=== PATIENT | female | born 1955 | race Caucasian/White ===

== ENCOUNTER 2020-08-09 15:40 | Outpatient (CLI) | payer MEDICARE, MEDICAID ==
[2020-08-09 16:35] LABS: Hemoglobin 13.3 g/dL (12.0-15.5); Mean Corpuscular HGB CONC 32.3 g/dL (32.0-36.0); Mean Corpuscular Hemoglobin 29.6 pg (27.0-33.0); Mean Corpuscular Volume 91.8 fl (81.6-98.3); Mean Platelet Volume 11.5 fl (7.4-10.4); Platelet Count 184 10x3/uL (150-450); RBC Distribution Width 13.9 % (11.5-14.5); Red Blood Cell (RBC) Count 4.49 10x6/uL (3.90-5.03)
[2020-08-09 16:43] LABS: Anion Gap 14 mmol/L (10-20); BUN (Urea Nitrogen) 13 mg/dL (9.8-20.1); Calc. Creatinine Clearance 0 mL/min (70-130); Calcium 8.8 mg/dL (7.8-10.44); Carbon Dioxide 26 mmol/L (23-31); Chloride 105 mmol/L (98-107); Glucose 78 mg/dL (80-115); Potassium 3.6 mmol/L (3.5-5.1); Sodium 141 mmol/L (136-145)
[2020-08-10 01:52] LABS: SARS-CoV-2 PCR by NAA Not Detected (NotDetected)
== END 2020-08-09 15:41 | disposition home or self-care (01) ==
LOC: LABBT 15:40
PROVIDERS: ATTEND Thoracic Surgery (Cardiothoracic Vascular Surgery)
DX: Z01.818 Encounter for other preprocedural examination (principal); I70.202 Unspecified atherosclerosis of native arteries of extremities, left leg; Z20.822 Contact with and (suspected) exposure to COVID-19
CPT/HCPCS: 71046; 80048; 85027; 86850; 86900; 86901; U0003; U0005; 87635; 93005; 93010

== ENCOUNTER 2020-08-13 05:59 | Inpatient (IN) | payer MEDICARE, MEDICAID ==
[2020-08-13] MEDS ORDERED: Heparin 5,000 UNITS/ML VIAL ONE (06:33)
[2020-08-13] MEDS ORDERED: Protamine Sulfate 50 MG/5 ML VIAL ONE (06:33)
[2020-08-13] MEDS ORDERED: Dexmedetomidine 200 MCG/2 ML VIAL ONE (06:51)
[2020-08-13] MEDS ORDERED: Fentanyl 250 MCG/5 ML VIAL ONE (06:51)
[2020-08-13] MEDS ORDERED: Norepinephrine 4 MG/4 ML VIAL ONE (07:02)
[2020-08-13] MEDS ORDERED: Midazolam HCl 2 mg/2 ml Vial ONE (07:09)
[2020-08-13] MEDS ORDERED: Heparin 10,000 UNITS/ 10 ML VIAL ONE (07:22)
[2020-08-13] MEDS ORDERED: Ondansetron PF 4 MG/2 ML Vial ONE (07:42)
[2020-08-13] MEDS ORDERED: PHENYLEPHRINE-NS 100 MCG/ML 10 ML SYRINGE ONE (07:42)
[2020-08-13] MEDS ORDERED: Vecuronium 10 MG VIAL ONE (07:42)
[2020-08-13] MEDS ORDERED: Lidocaine 1% PF 5 ML VIAL ONE (07:42)
[2020-08-13] MEDS ORDERED: PROPOFOL 200 MG/20 ML VIAL ONE (07:42)
[2020-08-13] MEDS ORDERED: ePHEDrine Sulfate 50 MG/10 ML VIAL ONE (07:42)
[2020-08-13] MEDS ORDERED: Fentanyl 100 MCG/2 ML VIAL ONE ×2 (15:12→19:16)
[2020-08-13] MEDS ORDERED: hydrALAZINE 20 MG/ML VIAL ONE (15:32)
[2020-08-13 17:16] LABS: #Lymphocytes 0.6 thou/uL (1.20-3.40); #Monocytes 0.2 thou/uL (0.11-0.59); #Neutrophils 8.8 thou/uL (1.40-6.50); %Basophils 0.1 % (0.0-1.0); %Eosinophils 0.2 % (0.0-10.0); %Lymphocytes 6.2 % (21.0-51.0); %Neutrophils 91.5 % (42.0-75.0); Hemoglobin 12.3 g/dL (12.0-16.0); Mean Corpuscular HGB CONC 31.8 g/dL (32.0-36.0); Mean Corpuscular Hemoglobin 29.3 pg (27.0-31.0); Mean Corpuscular Volume 92.1 fL (78.0-98.0); Mean Platelet Volume 9.7 fL (7.4-10.4); Platelet Count 158 thou/uL (130-400); RBC Distribution Width 13.1 % (11.5-14.5); White Blood Cell (WBC) Count 9.6 thou/uL (4.8-10.8)
[2020-08-13] MEDS ORDERED: Non-Formulary Medication 1 EACH PO PRN (20:23)
[2020-08-13] MEDS ORDERED: Morphine 4 MG/ML VIAL SLOW IVP PRN (20:27)
[2020-08-13] MEDS ORDERED: hydrALAZINE 20 MG/ML VIAL SLOW IVP PRN (20:28)
[2020-08-13] MEDS ORDERED: Ondansetron HCl/PF 4 MG/2 ML Vial IVP PRN (20:30)
[2020-08-13] MEDS ORDERED: Promethazine HCl 25 MG/ML VIAL IM/IV PRN (20:30)
[2020-08-13] MEDS ORDERED: Milk Of Magnesia 30 ML UDCUP PO PRN (20:33)
[2020-08-13] MEDS ORDERED: Mag-Al 1200 mg/1200 mg/30 ML UDCUP PO PRN (20:35)
[2020-08-13] MEDS ORDERED: Dronedarone HCl 400 MG TAB PO SCH (21:00)
[2020-08-13] MEDS ORDERED: Mometasone 200 MCG/Formoterol 5 MCG 120 PUFF INHALER INH SCH (21:00)
[2020-08-13] MEDS: busPIRone HCl 5 MG TAB PO SCH (22:10)
[2020-08-13] MEDS: Lactated Ringer's 1,000 ML IV SCH (22:10)
[2020-08-13] MEDS: HYDROcodone/Acetaminophen 5/325 mg Tablet PO PRN (22:11)
[2020-08-13] MEDS: Docusate 100 MG CAP PO SCH (22:11)
[2020-08-13 22:29] VITALS: BMI 27.0
[2020-08-14] MEDS: HYDROcodone/Acetaminophen 5/325 mg Tablet PO PRN ×2 (02:24→10:55)
[2020-08-14] MEDS ORDERED: Albumin 5% 250 ML ONE (04:02)
[2020-08-14 05:08] LABS: #Lymphocytes 1.1 thou/uL (1.20-3.40); #Neutrophils 6.4 thou/uL (1.40-6.50); %Basophils 0.1 % (0.0-1.0); %Eosinophils 0.1 % (0.0-10.0); %Lymphocytes 12.6 % (21.0-51.0); %Monocytes 11.3 % (0.0-10.0); %Neutrophils 75.9 % (42.0-75.0); Hemoglobin 11.2 g/dL (12.0-16.0); Mean Corpuscular HGB CONC 31.9 g/dL (32.0-36.0); Mean Corpuscular Hemoglobin 29.8 pg (27.0-31.0); Mean Corpuscular Volume 93.5 fL (78.0-98.0); Mean Platelet Volume 10.1 fL (7.4-10.4); Platelet Count 166 thou/uL (130-400); RBC Distribution Width 13.3 % (11.5-14.5); Red Blood Cell (RBC) Count 3.77 mill/uL (4.20-5.40); White Blood Cell (WBC) Count 8.5 thou/uL (4.8-10.8)
[2020-08-14 05:16] LABS: Anion Gap 10 mmol/L (10-20); BUN (Urea Nitrogen) 16 mg/dL (9.8-20.1); Calc. Creatinine Clearance 49 mL/min (70-130); Calcium 7.7 mg/dL (7.8-10.44); Carbon Dioxide 25 mmol/L (23-31); Chloride 106 mmol/L (98-107); Glucose 164 mg/dL (80-115); Potassium 3.8 mmol/L (3.5-5.1); Sodium 137 mmol/L (136-145)
[2020-08-14] MEDS: Mometasone 200 MCG/Formoterol 5 MCG 120 PUFF INHALER INH SCH ×2 (07:22→19:58)
[2020-08-14] MEDS: Dronedarone HCl 400 MG TAB PO SCH ×2 (08:30→16:41)
[2020-08-14] MEDS: Citalopram 20 MG TAB PO SCH (08:30)
[2020-08-14] MEDS: Docusate 100 MG CAP PO SCH ×2 (08:32→20:18)
[2020-08-14] MEDS: Pantoprazole 40 MG VIAL IVP SCH (08:33)
[2020-08-14] MEDS: Atorvastatin Calcium 20 MG TAB PO SCH (08:33)
[2020-08-14] MEDS: busPIRone HCl 5 MG TAB PO SCH ×2 (08:34→20:18)
[2020-08-14] MEDS: Lactated Ringer's 1,000 ML IV SCH ×3 (08:36→21:57)
[2020-08-14] MEDS ORDERED: Losartan 25 MG TAB PO SCH (09:00)
[2020-08-14] MEDS ORDERED: Aspirin 81 mg Enteric Coated Tablet PO SCH (15:00)
[2020-08-15] MEDS: HYDROcodone/Acetaminophen 5/325 mg Tablet PO PRN ×3 (02:20→18:11)
[2020-08-15] MEDS: Mometasone 200 MCG/Formoterol 5 MCG 120 PUFF INHALER INH SCH ×2 (07:16→19:08)
[2020-08-15] MEDS: Pantoprazole 40 MG VIAL IVP SCH (09:25)
[2020-08-15] MEDS: Dronedarone HCl 400 MG TAB PO SCH ×2 (09:26→18:09)
[2020-08-15] MEDS: Aspirin 81 mg Enteric Coated Tablet PO SCH (09:26)
[2020-08-15] MEDS: Docusate 100 MG CAP PO SCH ×2 (09:26→20:34)
[2020-08-15] MEDS: Citalopram 20 MG TAB PO SCH (09:27)
[2020-08-15] MEDS: busPIRone HCl 5 MG TAB PO SCH ×2 (09:27→20:33)
[2020-08-15] MEDS: Atorvastatin Calcium 20 MG TAB PO SCH (09:27)
[2020-08-16] MEDS: Mometasone 200 MCG/Formoterol 5 MCG 120 PUFF INHALER INH SCH ×2 (07:46→18:59)
[2020-08-16] MEDS: Aspirin 81 mg Enteric Coated Tablet PO SCH (08:05)
[2020-08-16] MEDS: Dronedarone HCl 400 MG TAB PO SCH ×2 (08:05→16:06)
[2020-08-16] MEDS: Atorvastatin Calcium 20 MG TAB PO SCH (08:06)
[2020-08-16] MEDS: Citalopram 20 MG TAB PO SCH (08:06)
[2020-08-16] MEDS: Docusate 100 MG CAP PO SCH ×2 (08:06→21:02)
[2020-08-16] MEDS: busPIRone HCl 5 MG TAB PO SCH ×2 (08:06→21:02)
[2020-08-16] MEDS: Pantoprazole 40 MG VIAL IVP SCH (08:07)
[2020-08-16] MEDS: Apixaban 5 MG TAB PO SCH ×2 (09:10→21:03)
[2020-08-17] MEDS: Mometasone 200 MCG/Formoterol 5 MCG 120 PUFF INHALER INH SCH ×2 (07:56→18:37)
[2020-08-17] MEDS: Aspirin 81 mg Enteric Coated Tablet PO SCH (08:39)
[2020-08-17] MEDS: Docusate 100 MG CAP PO SCH ×2 (08:40→20:05)
[2020-08-17] MEDS: Atorvastatin Calcium 20 MG TAB PO SCH (08:40)
[2020-08-17] MEDS: busPIRone HCl 5 MG TAB PO SCH ×2 (08:40→20:05)
[2020-08-17] MEDS: Dronedarone HCl 400 MG TAB PO SCH ×2 (08:40→17:01)
[2020-08-17] MEDS: Apixaban 5 MG TAB PO SCH ×2 (08:41→20:05)
[2020-08-17] MEDS: Citalopram 20 MG TAB PO SCH (08:41)
[2020-08-17] MEDS: Pantoprazole 40 MG VIAL IVP SCH (08:41)
[2020-08-17] MEDS ORDERED: Magnesium Citrate 300 ML BOT PO PRN (09:00)
[2020-08-17] MEDS ORDERED: Diltiazem HCl SR 60 mg Capsule PO SCH (12:00)
[2020-08-18] MEDS: Mometasone 200 MCG/Formoterol 5 MCG 120 PUFF INHALER INH SCH ×2 (06:55→19:22)
[2020-08-18] MEDS: Docusate 100 MG CAP PO SCH ×2 (08:20→19:42)
[2020-08-18] MEDS: Aspirin 81 mg Enteric Coated Tablet PO SCH (08:20)
[2020-08-18] MEDS: Apixaban 5 MG TAB PO SCH ×2 (08:20→19:42)
[2020-08-18] MEDS: Citalopram 20 MG TAB PO SCH (08:20)
[2020-08-18] MEDS: Atorvastatin Calcium 20 MG TAB PO SCH (08:20)
[2020-08-18] MEDS: busPIRone HCl 5 MG TAB PO SCH ×2 (08:21→19:42)
[2020-08-18] MEDS: Dronedarone HCl 400 MG TAB PO SCH ×2 (08:21→16:41)
[2020-08-18] MEDS: HYDROcodone/Acetaminophen 5/325 mg Tablet PO PRN (19:42)
[2020-08-19] MEDS: Mometasone 200 MCG/Formoterol 5 MCG 120 PUFF INHALER INH SCH ×2 (07:01→18:40)
[2020-08-19] MEDS: busPIRone HCl 5 MG TAB PO SCH ×2 (08:50→20:36)
[2020-08-19] MEDS: Dronedarone HCl 400 MG TAB PO SCH ×2 (08:50→16:43)
[2020-08-19] MEDS: Aspirin 81 mg Enteric Coated Tablet PO SCH (08:50)
[2020-08-19] MEDS: Atorvastatin Calcium 20 MG TAB PO SCH (08:50)
[2020-08-19] MEDS: Citalopram 20 MG TAB PO SCH (08:51)
[2020-08-19] MEDS: Apixaban 5 MG TAB PO SCH ×2 (08:51→20:37)
[2020-08-19] MEDS: Docusate 100 MG CAP PO SCH ×2 (08:51→20:36)
[2020-08-19] MEDS: HYDROcodone/Acetaminophen 5/325 mg Tablet PO PRN (10:47)
[2020-08-20] MEDS: Mometasone 200 MCG/Formoterol 5 MCG 120 PUFF INHALER INH SCH ×2 (07:47→18:50)
[2020-08-20] MEDS: Citalopram 20 MG TAB PO SCH (09:42)
[2020-08-20] MEDS: busPIRone HCl 5 MG TAB PO SCH ×2 (09:42→20:59)
[2020-08-20] MEDS: Atorvastatin Calcium 20 MG TAB PO SCH (09:42)
[2020-08-20] MEDS: Aspirin 81 mg Enteric Coated Tablet PO SCH (09:42)
[2020-08-20] MEDS: Apixaban 5 MG TAB PO SCH ×2 (09:43→20:59)
[2020-08-20] MEDS: Dronedarone HCl 400 MG TAB PO SCH ×2 (09:43→16:14)
[2020-08-20] MEDS: Docusate 100 MG CAP PO SCH ×2 (09:43→20:58)
[2020-08-20] MEDS ORDERED: Furosemide 20 MG/2 ML VIAL IVP SCH (10:30)
[2020-08-20] MEDS: HYDROcodone/Acetaminophen 5/325 mg Tablet PO PRN (11:17)
[2020-08-20] MEDS ORDERED: Potassium Chloride 20 MEQ TAB PO SCH (12:00)
[2020-08-20] MEDS ORDERED: Furosemide 40 MG/4 ML VIAL SLOW IVP SCH (14:00)
[2020-08-21 04:54] LABS: Anion Gap 11 mmol/L (10-20); BUN (Urea Nitrogen) 12 mg/dL (9.8-20.1); Calc. Creatinine Clearance 70 mL/min (70-130); Calcium 8.3 mg/dL (7.8-10.44); Carbon Dioxide 32 mmol/L (23-31); Chloride 99 mmol/L (98-107); Glucose 87 mg/dL (80-115); Potassium 3.3 mmol/L (3.5-5.1); Sodium 139 mmol/L (136-145)
[2020-08-21] MEDS: Mometasone 200 MCG/Formoterol 5 MCG 120 PUFF INHALER INH SCH (07:35)
[2020-08-21] MEDS ORDERED: Potassium Chloride 20 MEQ TAB PO SCH ×2 (09:00→18:00)
[2020-08-21] MEDS: Citalopram 20 MG TAB PO SCH (09:14)
[2020-08-21] MEDS: Dronedarone HCl 400 MG TAB PO SCH ×2 (09:14→17:14)
[2020-08-21] MEDS: Atorvastatin Calcium 20 MG TAB PO SCH (09:15)
[2020-08-21] MEDS: Docusate 100 MG CAP PO SCH (09:15)
[2020-08-21] MEDS: Apixaban 5 MG TAB PO SCH (09:15)
[2020-08-21] MEDS: busPIRone HCl 5 MG TAB PO SCH (09:15)
[2020-08-21] MEDS ORDERED: Furosemide 20 MG/2 ML VIAL SLOW IVP SCH (09:15)
[2020-08-21] MEDS: Aspirin 81 mg Enteric Coated Tablet PO SCH (09:16)
[2020-08-21 16:32] VITALS: BP 142/66; TEMP 98.2
== END 2020-08-21 19:02 | disposition home or self-care (01) | DRG 253 ==
LOC: SDC 05:59 → CCU 15:31 → 2NO 08-14 16:57
PROVIDERS: ADMIT Thoracic Surgery (Cardiothoracic Vascular Surgery); ATTEND Thoracic Surgery (Cardiothoracic Vascular Surgery)
PROC: 04CL0ZZ Extirpation of Matter from Left Femoral Artery, Open Approach (ICD-10-PCS; principal; 2020-08-13)
PROC: 041L0JJ Bypass Left Femoral Artery to Left Femoral Artery with Synthetic Substitute, Open Approach (ICD-10-PCS; 2020-08-13)
PROC: 041L09L Bypass Left Femoral Artery to Popliteal Artery with Autologous Venous Tissue, Open Approach (ICD-10-PCS; 2020-08-13)
PROC: 06BQ0ZZ Excision of Left Saphenous Vein, Open Approach (ICD-10-PCS; 2020-08-13)
DX: I70.213 Atherosclerosis of native arteries of extremities with intermittent claudication, bilateral legs (principal); J44.1 Chronic obstructive pulmonary disease with (acute) exacerbation; I48.92 Unspecified atrial flutter; T82.898A Other specified complication of vascular prosthetic devices, implants and grafts, initial encounter; Z79.52 Long term (current) use of systemic steroids; I25.10 Atherosclerotic heart disease of native coronary artery without angina pectoris; I48.91 Unspecified atrial fibrillation; J44.9 Chronic obstructive pulmonary disease, unspecified; Z95.5 Presence of coronary angioplasty implant and graft; Z82.49 Family history of ischemic heart disease and other diseases of the circulatory system; I73.9 Peripheral vascular disease, unspecified; Z87.891 Personal history of nicotine dependence; I10 Essential (primary) hypertension; E78.5 Hyperlipidemia, unspecified; E66.9 Obesity, unspecified; I48.0 Paroxysmal atrial fibrillation; Z79.01 Long term (current) use of anticoagulants; F41.9 Anxiety disorder, unspecified; Y83.2 Surgical operation with anastomosis, bypass or graft as the cause of abnormal reaction of the patient, or of later complication, without mention of misadventure at the time of the procedure
CPT/HCPCS: 36415; 71045; 71046; 80048; 83880; 85025; 86850; 86900; 86901; 93005; 93010; 94640; C9113; J0360; J0690; J1642; J1644; J1940; J2250; J2270; J2405; J2704; J2720; J3010; J7620; P9045